=== PATIENT | male | born 1955 | race Caucasian/White ===

== ENCOUNTER 2021-07-09 01:11 | Inpatient (IN) | payer MEDICARE, OTHER ==
[~2021-07-09] VITALS: Ht 167.6 cm; Wt 68.7 kg
[2021-07-09] MEDS ORDERED: REMDESIVIR (EUA) 200 MG in NS 100ML 100 ML IV STA (01:46)
--- NOTE | 2021-07-09 01:56 | PRM.CONS ---
Consultation Reason for Consult: Reason for Consultation: ,Acute respiratory failure, COVID-19 pneumonia, CHF exacerbation History of Present Illness Current and Past HX: (1) Acute respiratory failure due to COVID-19 Status: Acute ICD Code: U07.1 - COVID-19; J96.00 - Acute respiratory failure, unspecified whether with hypoxia or hypercapnia SNOMED: 51608539, 759303247 Assessment & Plan: Diagnosed w/ COVID-19 infection approx 1 week ago. Body aches, productive cough. No fever, CP, KUMAR, dizziness, N/V. Went to [facility] for SOB and worsening cough. received albuterol, ativan, rocephin, s olumedrol, zinc, and lasix. Transferred here as no beds available locally. -continue steroids (decadron) daily -continue rocephin daily -add azithromycin daily -add remdesevir 200mg x 1 followed by 100mg daily starting tomorrow -supplemental O2 as needed, wean as tolerated (2) Pneumonia due to COVID-19 virus Status: Acute ICD Code: U07.1 - COVID-19; J12.82 - Pneumonia due to coronavirus disease 2019 SNOMED: 638258832480865666 Assessment & Plan: See assessment/plan above. (3) CHF exacerbation Status: Acute COMPLICATION TYPE: W/ ACUTE EXACERBATION ICD Code: I50.9 - Heart failure, unspecified SNOMED: 904071855, 79953288079469 Assessment & Plan: Mild pulmonary edema on CXR from outside hospital. Received lasix 40mg IV x 1 prior to transfer here. -lasix 40mg IV q12h -no IVFs -monitor I/Os and weight (4) No significant past surgical history SNOMED: 226981910 Social and Family History: (1) Family history non-contributory ICD Code: Z78.9 - Other specified health status SNOMED: 43096149 (2) Alcohol dependence, in remission ICD Code: F10.21 - Alcohol dependence, in remission SNOMED: 837013871 (3) Heavy smoker (more than 20 cigarettes per day) ICD Code: F17.210 - Nicotine dependence, cigarettes, uncomplicated SNOMED: 00847457 (4) Former smoker, stopped smoking in distant past ICD Code: Z87.891 - Personal history of nicotine dependence SNOMED: 5226145 (5) No illicit drug use SNOMED: 134682969 History of Patient Comments 65yoM w/ hx of CHF presents as a transfer from [place] [facility] for acute respiratory failure, COVID-19 pneumonia, and CHF exacerbation. Patient states he was diagnosed w/ COVID-19 approx 1 week ago. Is unvaccinated. Started feeling ill soon after diagnosis w/ body aches, malaise, chills, productive cough. Denied CP/KUMAR/dizziness/N/V. He started getting short of breath so went to his local ER ([place]) where his SpO2 was 80-85% on room air. He was immediately placed on oxygen. CXR consistent w/ viral pneumonia and likely fluid overload. He received steroids, albuterol treatment, rocephin, zinc, ativan, and lasix while in the ER. He was transferred to our facility as there were no local beds available. Vitals & Lab Vitals: HR 65, RR 24, SpO2 91% on 4L NC, temp 98.1, BP 119/78. Labs ordered for AM. Problem Qualifiers (1) CHF exacerbation: Heart failure type: unspecified Qualified Codes: I50.9 - Heart failure, unspecified EDU CHAN MD Jul 09, 2021 01:56
[2021-07-09] MEDS ORDERED: TYLENOL PO PRN (02:00)
[2021-07-09] MEDS ORDERED: NS 500ML 500 ML IV ONE (03:05)
[2021-07-09 04:53] VITALS: BP 123/72
[2021-07-09 05:13] LABS: BASOPHIL % 0.1 % (0.0-0.2); LYMPHOCYTES # 0.71 10^3/uL1 (1.0-4.8); LYMPHOCYTES % 8.8 % (24.0-44.0); MEAN CORP HGB 29.4 pg (26-34); MONOCYTES # 0.5 10^3/uL (0.3-0.8); MONOCYTES % 6.5 % (5.0-12.0); NEUTROPHIL # 6.8 10^3/uL (1.8-7.7); NEUTROPHILS % 84.2 % (41.0-85.0); PLATELET COUNT 210 10^3/uL (150-400); RED CELL DISTRIBUTION WIDTH 14.1 % (11.5-14.5)
[2021-07-09 05:35] LABS: CALCIUM 7.6 mg/dL (8.4-10.5); CARBON DIOXIDE 32.6 mmol/L (20.0-32)
[2021-07-09 07:44] VITALS: BP 140/90
[2021-07-09] MEDS ORDERED: ROCEPHIN ONE (07:55)
[2021-07-09] MEDS ORDERED: NS 100ML 100 ML IV ONE (07:55)
[2021-07-09] MEDS ORDERED: LASIX ONE (07:55)
[2021-07-09] MEDS: PROTONIX PO SCH (08:14)
[2021-07-09] MEDS: DEXAMETHASONE 10 MG/ML VIAL IV SCH (08:14)
[2021-07-09] MEDS: LASIX IV SCH ×2 (08:14→20:24)
[2021-07-09] MEDS: ROCEPHIN 1,000 MG in NS 100ML 100 ML IV SCH (08:14)
[2021-07-09] MEDS: ZITHROMAX 500 MG in NS 250ML 250 ML IV SCH (10:48)
[2021-07-09 11:19] VITALS: BP 133/78
--- NOTE | 2021-07-09 13:22 | DIREP ---
PROCEDURE:CHEST 1 VIEW COMPARISON:[facility], [facility], XRAY CHEST SINGLE VW, 07/08/2021, 11:35 AM. INDICATIONS:shortness of breath FINDINGS: LUNGS/PLEURA:Bilateral multi lobar infiltrates with mildly improved aeration bilaterally. VASCULATURE:Normal. Unremarkable pulmonary vasculature. CARDIAC:Normal. No cardiac silhouette abnormality or cardiomegaly. MEDIASTINUM:Normal. No visible mass or adenopathy. BONES:Normal. No fracture or visible bony lesion. OTHER:Right internal jugular vein central venous catheter CONCLUSION:Bilateral multi lobar infiltrates with mild improvement induration from prior exam. Dictated by: Michael Yates DO on 07/09/2021 at 01:20 PM
--- NOTE | 2021-07-09 13:56 | PCM.HP ---
Cardiology H&P DATE SEEN BY PHYSICIAN: Jul 09, 2021 TIME SEEN BY PROVIDER: 10:00 Gopal Complaint: (1) Pneumonia due to COVID-19 virus Status: Acute ICD Codes: U07.1 - COVID-19; J12.82 - Pneumonia due to coronavirus disease 2018 SNOMED: 806037760810802478 (2) Acute respiratory failure due to COVID-19 Status: Acute ICD Codes: U07.1 - COVID-19; J96.00 - Acute respiratory failure, unspecified whether with hypoxia or hypercapnia SNOMED: 99691310, 488216462 HPI pt was diagnosed 7 days ago with covid in [place],sent home with azithromycin, rocephin, nebulizer treatments and zinc . was told to follow up day 7, pt arrived to follow up and oxygen saturations were in the 80s, placed on O2 and transferred here to [place] due to no beds at [place]. Pt states he was not feeling any worse. Past Medical HX Smoker- current, heavy, daily Back pain/ back surgery Past Surgical Hx back surgery- lumbar spine- incision to left lower abdomen Social Hx Smoker- current- heavy ETOH- History of abuse- currently in remission recreational drugs- denies Constitutional: pt denies fevers, no significant weight changes, no significant appetite change HEENT: Denies any vision problems, eye pain, irritation, nose congestion or running, no hearing problems no sore throat Respiratory Systems: chronic cough, cough present worse this last week with covid, shortness of breath, inability to take deep breath, Cardiovascular Systems: denies palpitations, no leg swelling, no chest pain Gastrointestinal Systems: denies any abdominal pain, nausea, vomiting, diarrhea, constipation, no melena or hematochezia Genitourinary Systems: denies any dysuria, hesitancy, frequency, incontinence, hematuria Neurological: denies any headaches, syncope, confusion or dizziness Assessment & Plan General: pt appears comfortable, NAD, laying in bed, O2 on, no family at bedside due to diagnosis HEENT: MMM, EOMI, PERRLA, Neck supple,no lymphadenopathy, Central line to rt upper chest clean, dry intact and no redness. LUNGS: barrel shaped chest, Clear anteriorly, Posterior: crackles bilaterally in all lobes, ON 5 liters NC 90% O2 saturation HEART: S1S2, RRR, No rubs, gallops, murmurs, or thrills ABDOMEN: Soft , ND, NTTP, BS + x4 quadrants, no organomegaly Extremeties: No edema, moved all 4 extremities without difficulty, and completely off the bed Skin: no breakdown , no open lesions Neuro: AAOx3, no motor or sensory deficits , gait not assessed at this time. Laboratory Tests Test 07/09/21 04:20 White Blood Count 8.1 10^3/uL Red Blood Count 4.59 10^6/uL Hemoglobin 13.5 g/dL Hematocrit 41.7 % Mean Corpuscular Volume 90.8 fL Mean Corpuscular Hemoglobin 29.4 pg Mean Corpuscular Hemoglobin Concent 32.4 g/dL Red Cell Distribution Width 14.1 % Platelet Count 210 10^3/uL Mean Platelet Volume 9.7 fL Neutrophils (%) (Auto) 84.2 % Lymphocytes (%) (Auto) 8.8 % Monocytes (%) (Auto) 6.5 % Neutrophils # (Auto) 6.8 10^3/uL Lymphocytes # (Auto) 0.71 10^3/uL1 Monocytes # (Auto) 0.5 10^3/uL Absolute Immature Granulocyte (auto 0.03 10^3 u/L Absolute Eosinophils (auto) 0.0 10^3/uL Immature Granulocytes % 0.40 % Eosinophils % 0.0 % Basophils % 0.1 % Basophils # 0.0 10^3/uL Sodium Level 144 mmol/L Potassium Level 3.7 mmol/L Chloride Level 104.0 mmol/L Carbon Dioxide Level 32.6 mmol/L Anion Gap 11.1 Blood Urea Nitrogen 20 mg/dL Creatinine 1.10 mg/dL Estimated GFR () 81.3 Est GFR (CKD-EPI)(Non-Afr Vincentian) 67.2 BUN/Creatinine Ratio 18.0 Glucose Level 128 mg/dL Calcium Level 7.6 mg/dL Total Bilirubin 0.5 mg/dL Aspartate Amino Transf (AST/SGOT) 99 U/L Alanine Aminotransferase (ALT/SGPT) 169 U/L Alkaline Phosphatase 80 U/L Pro-B-Type Natriuretic Peptide 641 pg/mL Total Protein 5.9 g/dL Albumin 2.6 g/dL Globulin 3.3 Albumin/Globulin Ratio 0.787 Current Medications Medications (Trade) Dose Ordered Sig/Rocael Route PRN Reason Start Time Stop Time Status Last Admin Dose Admin Acetaminophen (Tylenol) 1,000 mg Q6H PRN PO PAIN 1 - 3 07/09/21 02:00 08/08/21 01:59 Pantoprazole Sodium (Protonix) 40 mg DAILY PO 07/09/21 09:00 08/08/21 08:59 07/09/21 08:14 Furosemide (Lasix) 40 mg BID IV 07/09/21 09:00 08/08/21 08:59 07/09/21 08:14 Azithromycin 500 mg/Sodium Chloride 250 ml @ 175 mls/hr Q24HRS IV 07/09/21 10:00 08/08/21 09:59 07/09/21 10:48 Ceftriaxone Sodium 1000 mg/ Sodium Chloride 100 ml @ 100 mls/hr Q24HRS IV 07/09/21 09:00 08/08/21 08:59 07/09/21 08:14 Remdesivir 200 mg/ Sodium Chloride 140 ml @ 120.69 mls/ hr OT STAT IV 07/09/21 01:46 07/09/21 08:10 DC 07/09/21 01:46 Remdesivir 100 mg/ Sodium Chloride 120 ml @ 111.111 mls/hr Q24HRS IV 07/10/21 02:00 08/09/21 01:59 Sodium Chloride 500 ml @ ud STK-MED ONCE IV 07/09/21 03:05 07/09/21 03:05 DC Furosemide (Lasix) 40 mg STK-MED ONCE .ROUTE 07/09/21 07:55 07/09/21 07:55 DC Sodium Chloride 100 ml @ ud STK-MED ONCE IV 07/09/21 07:55 07/09/21 07:55 DC Ceftriaxone Sodium (Rocephin) 1,000 mg STK-MED ONCE .ROUTE 07/09/21 07:55 07/09/21 07:55 DC PLAN : 1. Acute respiratory failure d/t Covid: will continue supportive care with Oxygen as needed and wean as tolerated 2. Pneumonia: Azithromycin IV, Rocephin IV, Decadron , zinc, lasix, remdisivir infusion x 5 days Daily chest x ray to evaluate improvement, 3. Elevated PBNP- ordered ECHO to see if pt does infact have heart failure, pt denies any history of this Est Time Spent with Patient: 30 min RADHA THAKKARP Jul 09, 2021 13:56
[2021-07-09 16:07] VITALS: BP 145/90
[2021-07-09 20:46] VITALS: BP 128/69
[2021-07-10 00:38] VITALS: BP 112/71
[2021-07-10] MEDS: REMDESIVIR (EUA) 100 MG in NS 100ML 100 ML IV SCH (01:49)
[2021-07-10 04:25] VITALS: BP 112/70
[2021-07-10] MEDS ORDERED: LANOLIN HYDROUS TP ONE (08:21)
[2021-07-10 08:42] VITALS: BP 126/65
[2021-07-10] MEDS: ROCEPHIN 1,000 MG in NS 100ML 100 ML IV SCH (08:42)
[2021-07-10] MEDS: PROTONIX PO SCH (08:42)
[2021-07-10] MEDS: LASIX IV SCH ×2 (08:42→21:28)
[2021-07-10] MEDS: DEXAMETHASONE 10 MG/ML VIAL IV SCH (08:42)
[2021-07-10 09:04] LABS: CARBON DIOXIDE 34.2 mmol/L (20.0-32)
[2021-07-10] MEDS: LOVENOX SQ SCH (11:30)
[2021-07-10] MEDS: ZITHROMAX 500 MG in NS 250ML 250 ML IV SCH (11:30)
[2021-07-10 12:30] VITALS: BP 104/64
[2021-07-10 16:28] VITALS: BP 101/66
[2021-07-10 20:59] VITALS: BP 134/78
[2021-07-10] MEDS: KLOR-CON 10 PO SCH (21:28)
[2021-07-11 00:45] VITALS: BP 134/78
[2021-07-11] MEDS: REMDESIVIR (EUA) 100 MG in NS 100ML 100 ML IV SCH (02:00)
[2021-07-11 05:02] VITALS: BP 109/67
[2021-07-11 07:03] LABS: BASOPHIL % 0.1 % (0.0-0.2); EOSINOPHIL % 0.1 % (0.0-5.0); MEAN CORP HGB 29.3 pg (26-34); MONOCYTES # 0.5 10^3/uL (0.3-0.8); MONOCYTES % 5.8 % (5.0-12.0); NEUTROPHIL # 6.3 10^3/uL (1.8-7.7); NEUTROPHILS % 77.1 % (41.0-85.0); PLATELET COUNT 244 10^3/uL (150-400); RED CELL DISTRIBUTION WIDTH 13.8 % (11.5-14.5)
[2021-07-11 07:18] VITALS: BP 107/71
[2021-07-11 07:27] LABS: CALCIUM 8.1 mg/dL (8.4-10.5); CARBON DIOXIDE 34.3 mmol/L (20.0-32)
[2021-07-11] MEDS ORDERED: NS 500ML 500 ML IV ONE (08:25)
[2021-07-11] MEDS: ROCEPHIN 1,000 MG in NS 100ML 100 ML IV SCH (08:45)
[2021-07-11] MEDS: KLOR-CON 10 PO SCH (08:45)
[2021-07-11] MEDS: PROTONIX PO SCH (08:45)
[2021-07-11] MEDS: DEXAMETHASONE 10 MG/ML VIAL IV SCH (08:45)
[2021-07-11] MEDS: LASIX IV SCH ×2 (08:45→20:59)
[2021-07-11] MEDS: LOVENOX SQ SCH (08:46)
[2021-07-11] MEDS: ZITHROMAX 500 MG in NS 250ML 250 ML IV SCH (10:52)
--- NOTE | 2021-07-11 10:54 | PRM.PN ---
Progress Note Subjective Date: Jul 10, 2021 Time: 08:00 Physician Notes: pt appears short of breath, o2 saturation 92 % on 6 lit/ nc, pt denies shortness of breath Objective Review IO, Exams,& Results Problems Acute/Active Problems: (1) Acute respiratory failure due to COVID-19 (2) CHF exacerbation (3) Pneumonia due to COVID-19 virus Vital Signs Date Time Temp Pulse Resp B/P (MAP) Pulse Ox O2 Delivery O2 Flow Rate FiO2 07/11/21 09:00 82 18 92 Nasal Cannula 6.00 07/11/21 08:45 107/71 07/11/21 07:18 97.9 07/09/21 21:06 44 Intake and Output 07/11/21 07:00 Intake Total 118 ml Output Total 1650 ml Balance -1532 ml Intake Oral 118 ml Output Urine Total 1650 ml # Bowel Movements 1 Laboratory Tests Test 07/10/21 08:34 07/10/21 08:54 07/11/21 06:00 White Blood Count 7.4 10^3/uL 8.2 10^3/uL Red Blood Count 4.97 10^6/uL 4.84 10^6/uL Hemoglobin 14.4 g/dL 14.2 g/dL Hematocrit 45.6 % 44.5 % Mean Corpuscular Volume 91.8 fL 91.9 fL Mean Corpuscular Hemoglobin 29.0 pg 29.3 pg Mean Corpuscular Hemoglobin Concent 31.6 g/dL 31.9 g/dL Red Cell Distribution Width 14.0 % 13.8 % Platelet Count 237 10^3/uL 244 10^3/uL Mean Platelet Volume 8.9 fL 9.1 fL Sodium Level 144 mmol/L 142 mmol/L Potassium Level 3.2 mmol/L 3.2 mmol/L Chloride Level 104.0 mmol/L 104.0 mmol/L Carbon Dioxide Level 34.2 mmol/L 34.3 mmol/L Anion Gap 9.0 6.9 Blood Urea Nitrogen 27 mg/dL 27 mg/dL Creatinine 0.98 mg/dL 1.11 mg/dL Estimated GFR () 92.9 80.4 Est GFR (CKD-EPI)(Non-Afr Angolan) 76.8 66.5 BUN/Creatinine Ratio 27.0 24.0 Glucose Level 94 mg/dL 108 mg/dL Calcium Level 8.0 mg/dL 8.1 mg/dL Total Bilirubin 0.5 mg/dL 0.5 mg/dL Aspartate Amino Transf (AST/SGOT) 167 U/L 94 U/L Alanine Aminotransferase (ALT/SGPT) 330 U/L 285 U/L Alkaline Phosphatase 85 U/L 81 U/L Total Protein 6.1 g/dL 5.9 g/dL Albumin 2.5 g/dL 2.5 g/dL Globulin 3.6 3.4 Albumin/Globulin Ratio 0.694 0.735 Prothrombin Time 10.3 SEC Prothrombin Time INR (Non-Therap) 1.0 D-Dimer 1.35 mg/L Neutrophils (%) (Auto) 77.1 % Lymphocytes (%) (Auto) 16.0 % Monocytes (%) (Auto) 5.8 % Neutrophils # (Auto) 6.3 10^3/uL Lymphocytes # (Auto) 1.30 10^3/uL1 Monocytes # (Auto) 0.5 10^3/uL Absolute Immature Granulocyte (auto 0.07 10^3 u/L Absolute Eosinophils (auto) 0.0 10^3/uL Immature Granulocytes % 0.90 % Eosinophils % 0.1 % Basophils % 0.1 % Basophils # 0.0 10^3/uL Pro-B-Type Natriuretic Peptide 157 pg/mL Current Medications Medications (Trade) Dose Ordered Sig/Rocael PRN Reason Start Time Stop Time Status Last Admin Acetaminophen (Tylenol) 1,000 mg Q6H PRN PAIN 1 - 3 07/09/21 02:00 08/08/21 01:59 07/09/21 20:25 Azithromycin 500 mg/Sodium Chloride 250 ml @ 175 mls/hr Q24HRS 07/09/21 10:00 08/08/21 09:59 07/10/21 11:30 Ceftriaxone Sodium 1000 mg/ Sodium Chloride 100 ml @ 100 mls/hr Q24HRS 07/09/21 09:00 08/08/21 08:59 07/11/21 08:45 Enoxaparin Sodium (Lovenox) 40 mg Q24HRS 07/10/21 09:00 08/09/21 08:59 07/11/21 08:46 Furosemide (Lasix) 40 mg BID 07/09/21 09:00 08/08/21 08:59 07/11/21 08:45 Pantoprazole Sodium (Protonix) 40 mg DAILY 07/09/21 09:00 08/08/21 08:59 07/11/21 08:45 Potassium Chloride (Klor-Con 10) 20 meq DAILY 07/10/21 21:00 08/09/21 20:59 07/11/21 08:45 Remdesivir 100 mg/ Sodium Chloride 120 ml @ 111.111 mls/hr Q24HRS 07/10/21 02:00 08/09/21 01:59 07/11/21 02:00 Orders - RADHA THAKKAR TECHNICAL EDITOR Xr Chest 1v (07/09/21 11:21) Enoxaparin Sodium (Lovenox) (07/10/21 09:00) Potassium Chloride (Klor-Con 10) (07/10/21 21:00) Cbc With Auto Diff (07/12/21 05:00) Cbc With Auto Diff (07/13/21 05:00) Cbc With Auto Diff (07/14/21 05:00) Comprehensive Metabolic Panel (07/12/21 05:00) Comprehensive Metabolic Panel (07/13/21 05:00) Comprehensive Metabolic Panel (07/14/21 05:00) High Protein Diet (07/10/21 Dinner) Heart: Regular rate, Normal S1, Normal S2, No murmurs, Gallops, Rubs Abdomen: Normal bowel sounds, Soft, No tenderness, No hepatospenomegaly, No masses Lungs: Other (left lower lobe crackles present ) Skin: No rashes, No breakdown, No significant lesion Complications/Observations shortness of breath, desaturation upon exertion Assessment & Plan: Problems/Diagnosis: (1) Pneumonia due to COVID-19 virus Was this Present on Admission?: YES ICD Code: U07.1 - COVID-19; J12.82 - Pneumonia due to coronavirus disease 2019 SNOMED: 125497555687405222 Status: Acute (2) Acute respiratory failure due to COVID-19 Was this Present on Admission?: YES ICD Code: U07.1 - COVID-19; J96.00 - Acute respiratory failure, unspecified whether with hypoxia or hypercapnia SNOMED: 99465636, 486557408 Status: Acute (3) CHF exacerbation Was this Present on Admission?: YES ICD Code: I50.9 - Heart failure, unspecified SNOMED: 485293674, 72461231949936 Status: Resolved Assessment & Plan: pt BNP is <200, pt denies any hisotry of CHF and is not short of breath today, no swelling of extremeties and crackles to LLL only Plan General: appears short of breath despite O2 @6lit./ nc, no family at bedside, lying in bed HEENT: PERRLA, EOMI, MMM, neck is supple, no thyromegaly, no JVD LUNGS: LLL with crackles, all other lobes CTA HEART: S1S2. RRR, no murmurs, rubs, gallops or thrills, ABDOMEN: soft, ND, NTTP, no rebound, no guarding, normal BSx4, . EXTREMITIES: no swelling , warm pulses +2 SKIN: no rash, no breakdown NEURO: AAOX3, no motor or sensory deficits noted, gait not assessed at this time. PLAN: 1. covid pneumonia: decadron, azithromycin , zinc, rest and oxygen support 2) acute resp failure with hypoxia: O2 support and wean as needed 3) DVT prophylaxis: lovenox sq and scds Problem Qualifiers (1) CHF exacerbation: Heart failure type: unspecified Qualified Codes: I50.9 - Heart failure, unspecified RADHA THAKKARP Jul 11, 2021 10:54
--- NOTE | 2021-07-11 10:58 | PRM.PN ---
Progress Note Subjective Date: Jul 11, 2021 Time: 08:00 Physician Notes: Appears much more rested and no short of breath this morning, laying in bed resting. Objective Review IO, Exams,& Results Problems Acute/Active Problems: (1) Acute respiratory failure due to COVID-19 (2) Pneumonia due to COVID-19 virus Resolved Problems: (1) CHF exacerbation Vital Signs Date Time Temp Pulse Resp B/P (MAP) Pulse Ox O2 Delivery O2 Flow Rate FiO2 07/11/21 09:00 82 18 92 Nasal Cannula 6.00 07/11/21 08:45 107/71 07/11/21 07:18 97.9 07/09/21 21:06 44 Intake and Output 07/11/21 07:00 Intake Total 118 ml Output Total 1650 ml Balance -1532 ml Intake Oral 118 ml Output Urine Total 1650 ml # Bowel Movements 1 Laboratory Tests Test 07/10/21 08:34 07/10/21 08:54 07/11/21 06:00 White Blood Count 7.4 10^3/uL 8.2 10^3/uL Red Blood Count 4.97 10^6/uL 4.84 10^6/uL Hemoglobin 14.4 g/dL 14.2 g/dL Hematocrit 45.6 % 44.5 % Mean Corpuscular Volume 91.8 fL 91.9 fL Mean Corpuscular Hemoglobin 29.0 pg 29.3 pg Mean Corpuscular Hemoglobin Concent 31.6 g/dL 31.9 g/dL Red Cell Distribution Width 14.0 % 13.8 % Platelet Count 237 10^3/uL 244 10^3/uL Mean Platelet Volume 8.9 fL 9.1 fL Sodium Level 144 mmol/L 142 mmol/L Potassium Level 3.2 mmol/L 3.2 mmol/L Chloride Level 104.0 mmol/L 104.0 mmol/L Carbon Dioxide Level 34.2 mmol/L 34.3 mmol/L Anion Gap 9.0 6.9 Blood Urea Nitrogen 27 mg/dL 27 mg/dL Creatinine 0.98 mg/dL 1.11 mg/dL Estimated GFR () 92.9 80.4 Est GFR (CKD-EPI)(Non-Afr Maldivian) 76.8 66.5 BUN/Creatinine Ratio 27.0 24.0 Glucose Level 94 mg/dL 108 mg/dL Calcium Level 8.0 mg/dL 8.1 mg/dL Total Bilirubin 0.5 mg/dL 0.5 mg/dL Aspartate Amino Transf (AST/SGOT) 167 U/L 94 U/L Alanine Aminotransferase (ALT/SGPT) 330 U/L 285 U/L Alkaline Phosphatase 85 U/L 81 U/L Total Protein 6.1 g/dL 5.9 g/dL Albumin 2.5 g/dL 2.5 g/dL Globulin 3.6 3.4 Albumin/Globulin Ratio 0.694 0.735 Prothrombin Time 10.3 SEC Prothrombin Time INR (Non-Therap) 1.0 D-Dimer 1.35 mg/L Neutrophils (%) (Auto) 77.1 % Lymphocytes (%) (Auto) 16.0 % Monocytes (%) (Auto) 5.8 % Neutrophils # (Auto) 6.3 10^3/uL Lymphocytes # (Auto) 1.30 10^3/uL1 Monocytes # (Auto) 0.5 10^3/uL Absolute Immature Granulocyte (auto 0.07 10^3 u/L Absolute Eosinophils (auto) 0.0 10^3/uL Immature Granulocytes % 0.90 % Eosinophils % 0.1 % Basophils % 0.1 % Basophils # 0.0 10^3/uL Pro-B-Type Natriuretic Peptide 157 pg/mL Current Medications Medications (Trade) Dose Ordered Sig/Rocael PRN Reason Start Time Stop Time Status Last Admin Acetaminophen (Tylenol) 1,000 mg Q6H PRN PAIN 1 - 3 07/09/21 02:00 08/08/21 01:59 07/09/21 20:25 Azithromycin 500 mg/Sodium Chloride 250 ml @ 175 mls/hr Q24HRS 07/09/21 10:00 08/08/21 09:59 07/10/21 11:30 Ceftriaxone Sodium 1000 mg/ Sodium Chloride 100 ml @ 100 mls/hr Q24HRS 07/09/21 09:00 08/08/21 08:59 07/11/21 08:45 Enoxaparin Sodium (Lovenox) 40 mg Q24HRS 07/10/21 09:00 08/09/21 08:59 07/11/21 08:46 Furosemide (Lasix) 40 mg BID 07/09/21 09:00 08/08/21 08:59 07/11/21 08:45 Pantoprazole Sodium (Protonix) 40 mg DAILY 07/09/21 09:00 08/08/21 08:59 07/11/21 08:45 Potassium Chloride (Klor-Con 10) 20 meq DAILY 07/10/21 21:00 08/09/21 20:59 07/11/21 08:45 Remdesivir 100 mg/ Sodium Chloride 120 ml @ 111.111 mls/hr Q24HRS 07/10/21 02:00 08/09/21 01:59 07/11/21 02:00 Orders - RADHA THAKKAR GEOLOGY SCIENTIST Xr Chest 1v (07/09/21 11:21) Enoxaparin Sodium (Lovenox) (07/10/21 09:00) Potassium Chloride (Klor-Con 10) (07/10/21 21:00) Cbc With Auto Diff (07/12/21 05:00) Cbc With Auto Diff (07/13/21 05:00) Cbc With Auto Diff (07/14/21 05:00) Comprehensive Metabolic Panel (07/12/21 05:00) Comprehensive Metabolic Panel (07/13/21 05:00) Comprehensive Metabolic Panel (07/14/21 05:00) High Protein Diet (07/10/21 Dinner) Heart: Regular rate, Normal S1, Normal S2, No murmurs, Gallops, Rubs Abdomen: Normal bowel sounds, Soft, No tenderness, No hepatospenomegaly, No masses Lungs: Other (left lower lobe crackles present ) Skin: No rashes, No breakdown, No significant lesion Changes in Treatment Decadron 6 mg IV daily Assessment & Plan: Problems/Diagnosis: (1) Acute respiratory failure due to COVID-19 Was this Present on Admission?: YES ICD Code: U07.1 - COVID-19; J96.00 - Acute respiratory failure, unspecified whether with hypoxia or hypercapnia SNOMED: 52069679, 594582910 Status: Acute (2) Pneumonia due to COVID-19 virus Was this Present on Admission?: YES ICD Code: U07.1 - COVID-19; J12.82 - Pneumonia due to coronavirus disease 2019 SNOMED: 591055186546888264 Status: Acute Assessment General: appears comfortable, no family at bedside, lying in bed HEENT: PERRLA, EOMI, MMM, neck is supple, no thyromegaly, no JVD LUNGS: LLL with crackles, all other lobes CTA HEART: S1S2. RRR, no murmurs, rubs, gallops or thrills, ABDOMEN: soft, ND, NTTP, no rebound, no guarding, normal BSx4, . EXTREMITIES: no swelling , warm pulses +2 SKIN: no rash, no breakdown NEURO: AAOX3, no motor or sensory deficits noted, gait not assessed at this time. PLAN: 1. covid pneumonia: decadron, azithromycin , zinc, rest and oxygen support 2) acute resp failure with hypoxia: O2 support and wean as needed 3) DVT prophylaxis: lovenox sq and scds RADHA THAKKAR GEOLOGY SCIENTIST Jul 11, 2021 10:58
[2021-07-11 11:52] VITALS: BP 120/62
[2021-07-11] MEDS ORDERED: DIPRIVAN IV STA (13:36)
[2021-07-11] MEDS ORDERED: DIPRIVAN IV PRN (14:00)
[2021-07-11 16:15] VITALS: BP 116/65
[2021-07-11 20:00] VITALS: BP 101/66
[2021-07-11] MEDS: MELATONIN PO PRN (20:59)
[2021-07-12] VITALS (7 sets, daily range): BP systolic 93–135; BP diastolic 43–73
[2021-07-12] MEDS ORDERED: COMBIVENT RESPIMAT 20-100 MCG IH ONE (01:12)
--- NOTE | 2021-07-12 01:33 | NUR ---
Pt's 02 sats 85% on 6 liters NC. Encouraged pt to use IS and notified RT. RT put pt on venti mask. 02 sats 92% and administered Combivient inhaler. Pt denies shortness of breath at this time.
--- NOTE | 2021-07-12 01:47 | NUR ---
At approximately 0040, the patient oxygen delivery device was changed to venturi mask at 45%/ 12 lpm. The nursing staff reported a downward trend in the SpO2 throughout the evening. On assessment, the patient exhibited no marked dyspnea at rest, however, minimal activity increased the work of breathing and subsequent increase in HR and decrease in SpO2. Pt appears to tolerate the mask well and the immediate improvement with a decrease in HR and increase in SpO2 was noted. Additionally, a Combivent MDI was added RTQ6hr. The first dose being administered at 0055. christin Addendum: 07/12/21 at 0152 by AGNIESZKA CORNELL RT Amended: Links added.
[2021-07-12] MEDS: COMBIVENT RESPIMAT 20-100 MCG IH SCH ×3 (01:52→16:25)
[2021-07-12] MEDS: REMDESIVIR (EUA) 100 MG in NS 100ML 100 ML IV SCH (02:10)
[2021-07-12 06:59] LABS: BASOPHIL % 0.1 % (0.0-0.2); EOSINOPHIL # 0.1 10^3/uL (0.0-0.2); EOSINOPHIL % 0.5 % (0.0-5.0); LYMPHOCYTES # 1.41 10^3/uL1 (1.0-4.8); LYMPHOCYTES % 14.1 % (24.0-44.0); MEAN CORP HGB 29.9 pg (26-34); MONOCYTES # 0.5 10^3/uL (0.3-0.8); MONOCYTES % 4.7 % (5.0-12.0); NEUTROPHIL # 8.1 10^3/uL (1.8-7.7); NEUTROPHILS % 80.6 % (41.0-85.0); PLATELET COUNT 276 10^3/uL (150-400); RED CELL DISTRIBUTION WIDTH 13.4 % (11.5-14.5)
[2021-07-12 07:21] LABS: CALCIUM 8.2 mg/dL (8.4-10.5); CARBON DIOXIDE 32.5 mmol/L (20.0-32)
[2021-07-12] MEDS: DEXAMETHASONE 10 MG/ML VIAL IV SCH (08:18)
[2021-07-12] MEDS: LASIX IV SCH ×2 (08:18→20:16)
[2021-07-12] MEDS: LOVENOX SQ SCH (08:19)
[2021-07-12] MEDS: PROTONIX PO SCH (08:19)
[2021-07-12] MEDS: KLOR-CON 10 PO SCH ×2 (08:19→20:17)
[2021-07-12] MEDS: ROCEPHIN 1,000 MG in NS 100ML 100 ML IV SCH (08:20)
--- NOTE | 2021-07-12 08:42 | NUR ---
Assumed patient care at this time, pt visibly irritated and states he does not want to be in hospital. Patient encouraged to stay in hospital because of how sick he is. pt in bed on 50%VM, sats around 87-89%. Patient gotten up to chair and switched to 6L NC to eat breakfast, sats maintained around 88%. Patient encouraged to continue working on incentive spirometer and to move around as much as possible. Patient informed of the possibility of going on high flow nasal cannula if sats begin to drop. Patient voices understanding and has no questions or concerns. Will continue to monitor. Addendum: 07/12/21 at 0850 by Jaylene Jonas RRT RT Amended: Links added.
[2021-07-12] MEDS: NITROSTAT SL STA ×2 (10:11→10:16)
[2021-07-12] MEDS: ZITHROMAX 500 MG in NS 250ML 250 ML IV SCH (10:11)
--- NOTE | 2021-07-12 10:16 | NUR ---
CHEST PAIN PT MADE COMPLAINT OF CHEST PAIN TO [facility]ALEIGH THAKKAR. PROVIDER ORDERED STAT ORDER OF NITROGLYCERIN SL TAB 0.4 MG. PT NOW VERBALIZES NO PAIN AND IS EDUCATED ON NITROGLYCERIN ASSOCIATED HEAD ACHES. PT REFUSED MED. MED NOT NEEDED AT THIS TIME.
--- NOTE | 2021-07-12 11:26 | PCM.EKG ---
[facility] Test Date: 2021-07-12 Test Time: 11:24:16 Pat Name: XU SEGOVIA Department: Room: 303 A Gender: M Aircraft Assembler: MADDIE : 1955 Requested By: RADHA THAKKAR Order Number: [id number] Reading MD: Measurements Intervals [place] Rate: 85 P: 39 MN: 146 QRS: -25 QRSD: 90 T: 30 QT: 362 QTc: 431 Interpretive Statements Sinus rhythm Probable left atrial enlargement Borderline left axis deviation Baseline wander in lead(s) V5 No previous ECG available for comparison Please click the below link to view image of tracing.
--- NOTE | 2021-07-12 13:07 | PRM.PN ---
Progress Note Subjective Date: Jul 12, 2021 Time: 08:00 Physician Notes: Patient appears very uncomfortable, shortness of breath, complains of chest pain in center of chest that is reproducible with palpation and deep breath, O2 is at 6 L nasal cannula, saturations 92%. Discussed with patient incentive spirometry importance of ambulation and deep breathing, ordered EKG, cardiac enzymes, nitro, Objective Review IO, Exams,& Results Problems Acute/Active Problems: (1) Acute respiratory failure due to COVID-19 (2) Pneumonia due to COVID-19 virus Resolved Problems: (1) CHF exacerbation Vital Signs Date Time Temp Pulse Resp B/P (MAP) Pulse Ox O2 Delivery O2 Flow Rate FiO2 07/12/21 12:05 97.9 84 20 95/43 (60) 94 07/12/21 11:30 Comfort Jomar 30.00 50 Intake and Output 07/12/21 07:00 Intake Total 220 ml Output Total 1000 ml Balance -780 ml Intake Oral 220 ml Output Urine Total 1000 ml Laboratory Tests Test 07/11/21 06:00 07/12/21 05:50 White Blood Count 8.2 10^3/uL 10.0 10^3/uL Red Blood Count 4.84 10^6/uL 4.78 10^6/uL Hemoglobin 14.2 g/dL 14.3 g/dL Hematocrit 44.5 % 43.4 % Mean Corpuscular Volume 91.9 fL 90.8 fL Mean Corpuscular Hemoglobin 29.3 pg 29.9 pg Mean Corpuscular Hemoglobin Concent 31.9 g/dL 32.9 g/dL Red Cell Distribution Width 13.8 % 13.4 % Platelet Count 244 10^3/uL 276 10^3/uL Mean Platelet Volume 9.1 fL 9.1 fL Neutrophils (%) (Auto) 77.1 % 80.6 % Lymphocytes (%) (Auto) 16.0 % 14.1 % Monocytes (%) (Auto) 5.8 % 4.7 % Neutrophils # (Auto) 6.3 10^3/uL 8.1 10^3/uL Lymphocytes # (Auto) 1.30 10^3/uL1 1.41 10^3/uL1 Monocytes # (Auto) 0.5 10^3/uL 0.5 10^3/uL Absolute Immature Granulocyte (auto 0.07 10^3 u/L 0.10 10^3 u/L Absolute Eosinophils (auto) 0.0 10^3/uL 0.1 10^3/uL Immature Granulocytes % 0.90 % 1.00 % Eosinophils % 0.1 % 0.5 % Basophils % 0.1 % 0.1 % Basophils # 0.0 10^3/uL 0.0 10^3/uL Sodium Level 142 mmol/L 143 mmol/L Potassium Level 3.2 mmol/L 3.0 mmol/L Chloride Level 104.0 mmol/L 104.0 mmol/L Carbon Dioxide Level 34.3 mmol/L 32.5 mmol/L Anion Gap 6.9 9.5 Blood Urea Nitrogen 27 mg/dL 27 mg/dL Creatinine 1.11 mg/dL 1.03 mg/dL Estimated GFR () 80.4 87.7 Est GFR (CKD-EPI)(Non-Afr Greenlandic) 66.5 72.5 BUN/Creatinine Ratio 24.0 26.0 Glucose Level 108 mg/dL 96 mg/dL Calcium Level 8.1 mg/dL 8.2 mg/dL Total Bilirubin 0.5 mg/dL 0.5 mg/dL Aspartate Amino Transf (AST/SGOT) 94 U/L 56 U/L Alanine Aminotransferase (ALT/SGPT) 285 U/L 224 U/L Alkaline Phosphatase 81 U/L 82 U/L Pro-B-Type Natriuretic Peptide 157 pg/mL 115 pg/mL Total Protein 5.9 g/dL 5.9 g/dL Albumin 2.5 g/dL 2.5 g/dL Globulin 3.4 3.4 Albumin/Globulin Ratio 0.735 0.735 Triglycerides Level 77 mg/dL Total Creatine Kinase 74 U/L Creatine Kinase MB < 0.5 ng/mL Troponin I < 0.02 ng/mL Current Medications Medications (Trade) Dose Ordered Sig/Rocael PRN Reason Start Time Stop Time Status Last Admin Albuterol/ Ipratropium (Combivent Respimat 20-100 Mcg) 1 inh RTQ6H 07/12/21 01:30 08/11/21 01:29 07/12/21 08:25 Enoxaparin Sodium (Lovenox) 40 mg Q24HRS 07/10/21 09:00 08/09/21 08:59 07/12/21 08:19 Melatonin (Melatonin) 3 mg HS PRN INSOMNIA 07/11/21 16:30 08/10/21 16:29 07/11/21 20:59 Potassium Chloride (Klor-Con 10) 20 meq BID 07/12/21 09:00 08/11/21 08:59 07/12/21 08:19 Remdesivir 100 mg/ Sodium Chloride 120 ml @ 111.111 mls/hr Q24HRS 07/10/21 02:00 08/09/21 01:59 07/12/21 02:10 Tracy - RADHA [employer] Cbc With Auto Diff (07/13/21 05:00) Cbc With Auto Diff (07/14/21 05:00) Comprehensive Metabolic Panel (07/13/21 05:00) Comprehensive Metabolic Panel (07/14/21 05:00) High Protein Diet (07/10/21 Dinner) Potassium Chloride (Klor-Con 10) (07/12/21 09:00) Xr Chest 1v (07/12/21 09:50) Heart: Regular rate, Normal S1, Normal S2, No murmurs, Gallops, Rubs Abdomen: Normal bowel sounds, Soft, No tenderness, No hepatospenomegaly, No masses Lungs: Other (left lower lobe crackles present , 6 liters NC ) Skin: No rashes, No breakdown, No significant lesion Complications/Observations While in room, patient continued with shortness of breath, respiratory therapy moved patient to comfort flow 30 L. Patient now states he has no chest pain and did not want the nitro. Changes in Treatment Comfort flow at 30 L Assessment & Plan: Problems/Diagnosis: (1) Acute respiratory failure due to COVID-19 Was this Present on Admission?: YES ICD Code: U07.1 - COVID-19; J96.00 - Acute respiratory failure, unspecified whether with hypoxia or hypercapnia SNOMED: 48009483, [id number] Status: Acute (2) Pneumonia due to COVID-19 virus Was this Present on Admission?: YES ICD Code: U07.1 - COVID-19; J12.82 - Pneumonia due to coronavirus disease 2019 SNOMED: 025748548805121273 Status: Acute (3) Chest pain at rest Was this Present on Admission?: NO Onset Date: ~ 07/12/2021 ICD Code: R07.9 - Chest pain, unspecified SNOMED: 1855220 Status: Acute Assessment General: appears uncomfortable, short of breath, unable to deep breathe. sitting up in chair, states he is freezing cold HEENT: PERRLA, EOMI, MMM, neck is supple, no thyromegaly, no JVD LUNGS: LLL with crackles, all other lobes CTA HEART: S1S2. RRR, no murmurs, rubs, gallops or thrills, ABDOMEN: soft, ND, NTTP, no rebound, no guarding, normal BSx4, . EXTREMITIES: no swelling , warm pulses +2 SKIN: no rash, no breakdown NEURO: AAOX3, no motor or sensory deficits noted, gait not assessed at this time. PLAN: 1. covid pneumonia: decadron, azithromycin , zinc, rest and oxygen support 2) acute resp failure with hypoxia: O2 support increased to Comfort Flow 30L 3) DVT prophylaxis: lovenox sq and scds 4) chest pain: cardiac enzymes, EKG, RADHA GamezP Jul 12, 2021 13:07
--- NOTE | 2021-07-12 15:52 | DIREP ---
PROCEDURE:CHEST 1 VIEW COMPARISON:[facility], CR, XRAY CHEST SINGLE VW, 07/09/2021, 11:21 AM. [facility], CR, XRAY CHEST SINGLE VW, 07/08/2021, 11:35 AM. INDICATIONS:chest pain FINDINGS: LUNGS/PLEURA:Low lung volumes with associated interstitial crowding. Patchy interstitial opacities, slightly improving in distribution since the prior examinations. Costophrenic angles are sharp. No pneumothorax. VASCULATURE:Normal. Unremarkable pulmonary vasculature. CARDIAC:Normal. No cardiac silhouette abnormality or cardiomegaly. MEDIASTINUM:Midline in position. BONES:Significant degenerative change of the right shoulder. OTHER:Right IJ approach central venous catheter tip at the level of the lower right atrium. CONCLUSION: Low lung volumes with associated interstitial crowding. Slightly improving interstitial pattern of opacity in the lungs. Dictated by: Slick Oconnell MD on 07/12/2021 at 03:45 PM
--- NOTE | 2021-07-13 00:12 | NUR ---
PT REFUSES TO WEAR TELEMETRY
[2021-07-13 01:07] VITALS: BP 124/68
[2021-07-13] MEDS: REMDESIVIR (EUA) 100 MG in NS 100ML 100 ML IV SCH (01:25)
[2021-07-13 04:13] VITALS: BP 120/73
[2021-07-13 05:44] LABS: EOSINOPHIL # 0.2 10^3/uL (0.0-0.2); EOSINOPHIL % 1.6 % (0.0-5.0); LYMPHOCYTES # 1.24 10^3/uL1 (1.0-4.8); LYMPHOCYTES % 10.7 % (24.0-44.0); MEAN CORP HGB 29.9 pg (26-34); MONOCYTES # 0.5 10^3/uL (0.3-0.8); NEUTROPHIL # 9.7 10^3/uL (1.8-7.7); NEUTROPHILS % 83.7 % (41.0-85.0); PLATELET COUNT 303 10^3/uL (150-400); RED CELL DISTRIBUTION WIDTH 13.6 % (11.5-14.5)
[2021-07-13 05:59] LABS: CALCIUM 8.4 mg/dL (8.4-10.5); CARBON DIOXIDE 33.3 mmol/L (20.0-32)
[2021-07-13 08:10] VITALS: BP 101/64
[2021-07-13] MEDS ORDERED: NS 250ML 250 ML ONE (08:41)
[2021-07-13] MEDS: DEXAMETHASONE 10 MG/ML VIAL IV SCH (09:03)
[2021-07-13] MEDS: LASIX IV SCH ×2 (09:03→20:05)
[2021-07-13] MEDS: KLOR-CON 10 PO SCH ×2 (09:04→20:06)
[2021-07-13] MEDS: ROCEPHIN 1,000 MG in NS 100ML 100 ML IV SCH (09:04)
[2021-07-13] MEDS: LOVENOX SQ SCH (09:04)
[2021-07-13] MEDS: PROTONIX PO SCH (09:04)
[2021-07-13] MEDS: ZITHROMAX 500 MG in NS 250ML 250 ML IV SCH (10:54)
[2021-07-13 11:53] VITALS: BP 101/69
[2021-07-13] MEDS: COMBIVENT RESPIMAT 20-100 MCG IH SCH ×2 (15:12→21:00)
[2021-07-13 17:04] VITALS: BP 106/49
[2021-07-13 19:59] VITALS: BP 117/82
--- NOTE | 2021-07-13 20:19 | PRM.PN ---
PROGRESS NOTE SUBJECTIVE Breathing easier than yesterday, chest pain resolved, Tolerating p.o. intake well No bowel movement today OBJECTIVE Vital Signs Date Time Temp Pulse Resp B/P (MAP) Pulse Ox O2 Delivery O2 Flow Rate FiO2 07/13/21 20:05 117/82 07/13/21 19:59 98.9 74 16 117/82 (94) 94 07/13/21 17:04 98.6 71 19 106/49 (68) 94 07/13/21 16:58 63 20 94 Comfort Jomar 07/13/21 15:13 63 20 94 07/13/21 11:53 98.5 63 20 101/69 (80) 94 07/13/21 10:55 Comfort Jomar 35.00 07/13/21 10:54 81 18 98 Comfort Jomar 30.00 50 07/13/21 09:03 101/64 07/13/21 08:10 98.7 81 18 101/64 (76) 95 Comfort Flow General: Patient is awake alert oriented not in distress HEENT:Nasal prong oxygen,Via high flow , Mucous membrane is moist, Neck supple Lungs left basal Rales present Heart regular rate and rhythm no murmur gallop appreciated Abdomen: Soft nontender bowel sounds present Extremities no edema no calf tenderness 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 Laboratory Tests Test 07/11/21 06:00 07/12/21 05:50 07/13/21 05:23 White Blood Count 8.2 10^3/uL (4.5-11.0) 10.0 10^3/uL (4.5-11.0) 11.6 10^3/uL (4.5-11.0) Red Blood Count 4.84 10^6/uL (4.50-5.90) 4.78 10^6/uL (4.50-5.90) 4.85 10^6/uL (4.50-5.90) Hemoglobin 14.2 g/dL (13.9-16.3) 14.3 g/dL (13.9-16.3) 14.5 g/dL (13.9-16.3) Hematocrit 44.5 % (37.0-53.0) 43.4 % (37.0-53.0) 44.5 % (37.0-53.0) Mean Corpuscular Volume 91.9 fL (78-100) 90.8 fL (78-100) 91.8 fL (78-100) Mean Corpuscular Hemoglobin 29.3 pg (26-34) 29.9 pg (26-34) 29.9 pg (26-34) Mean Corpuscular Hemoglobin Concent 31.9 g/dL (33-36.5) 32.9 g/dL (33-36.5) 32.6 g/dL (33-36.5) Red Cell Distribution Width 13.8 % (11.5-14.5) 13.4 % (11.5-14.5) 13.6 % (11.5-14.5) Platelet Count 244 10^3/uL (150-400) 276 10^3/uL (150-400) 303 10^3/uL (150-400) Mean Platelet Volume 9.1 fL (7.8-11.0) 9.1 fL (7.8-11.0) 8.7 fL (7.8-11.0) Neutrophils (%) (Auto) 77.1 % (41.0-85.0) 80.6 % (41.0-85.0) 83.7 % (41.0-85.0) Lymphocytes (%) (Auto) 16.0 % (24.0-44.0) 14.1 % (24.0-44.0) 10.7 % (24.0-44.0) Monocytes (%) (Auto) 5.8 % (5.0-12.0) 4.7 % (5.0-12.0) 4.0 % (5.0-12.0) Neutrophils # (Auto) 6.3 10^3/uL (1.8-7.7) 8.1 10^3/uL (1.8-7.7) 9.7 10^3/uL (1.8-7.7) Lymphocytes # (Auto) 1.30 10^3/uL1 (1.0-4.8) 1.41 10^3/uL1 (1.0-4.8) 1.24 10^3/uL1 (1.0-4.8) Monocytes # (Auto) 0.5 10^3/uL (0.3-0.8) 0.5 10^3/uL (0.3-0.8) 0.5 10^3/uL (0.3-0.8) Absolute Immature Granulocyte (auto 0.07 10^3 u/L (0-2) 0.10 10^3 u/L (0-2) 0.15 10^3 u/L (0-2) Absolute Eosinophils (auto) 0.0 10^3/uL (0.0-0.2) 0.1 10^3/uL (0.0-0.2) 0.2 10^3/uL (0.0-0.2) Immature Granulocytes % 0.90 % (0.00-0.50) 1.00 % (0.00-0.50) 1.30 % (0.00-0.50) Eosinophils % 0.1 % (0.0-5.0) 0.5 % (0.0-5.0) 1.6 % (0.0-5.0) Basophils % 0.1 % (0.0-0.2) 0.1 % (0.0-0.2) 0.0 % (0.0-0.2) Basophils # 0.0 10^3/uL (0.0-0.1) 0.0 10^3/uL (0.0-0.1) 0.0 10^3/uL (0.0-0.1) Sodium Level 142 mmol/L (132-145) 143 mmol/L (132-145) 143 mmol/L (132-145) Potassium Level 3.2 mmol/L (3.6-5.2) 3.0 mmol/L (3.6-5.2) 3.4 mmol/L (3.6-5.2) Chloride Level 104.0 mmol/L (96-109) 104.0 mmol/L (96-109) 105.0 mmol/L (96-109) Carbon Dioxide Level 34.3 mmol/L (20.0-32) 32.5 mmol/L (20.0-32) 33.3 mmol/L (20.0-32) Anion Gap 6.9 9.5 8.1 Blood Urea Nitrogen 27 mg/dL (7-18) 27 mg/dL (7-18) 26 mg/dL (7-18) Creatinine 1.11 mg/dL (0.59-1.40) 1.03 mg/dL (0.59-1.40) 1.13 mg/dL (0.59-1.40) Estimated GFR () 80.4 (>/=60) 87.7 (>/=60) 78.8 (>/=60) Est GFR (CKD-EPI)(Non-Afr Moroccan) 66.5 (>/=60) 72.5 (>/=60) 65.1 (>/=60) BUN/Creatinine Ratio 24.0 26.0 23.0 Glucose Level 108 mg/dL (70-110) 96 mg/dL (70-110) 98 mg/dL (70-110) Calcium Level 8.1 mg/dL (8.4-10.5) 8.2 mg/dL (8.4-10.5) 8.4 mg/dL (8.4-10.5) Total Bilirubin 0.5 mg/dL (0.2-1.0) 0.5 mg/dL (0.2-1.0) 0.6 mg/dL (0.2-1.0) Aspartate Amino Transf (AST/SGOT) 94 U/L (0-35) 56 U/L (0-35) 54 U/L (0-35) Alanine Aminotransferase (ALT/SGPT) 285 U/L (12-78) 224 U/L (12-78) 201 U/L (12-78) Alkaline Phosphatase 81 U/L (50-136) 82 U/L (50-136) 84 U/L (50-136) Pro-B-Type Natriuretic Peptide 157 pg/mL (0-125) 115 pg/mL (0-125) Total Protein 5.9 g/dL (6.4-8.2) 5.9 g/dL (6.4-8.2) 5.9 g/dL (6.4-8.2) Albumin 2.5 g/dL (3.4-5.0) 2.5 g/dL (3.4-5.0) 2.5 g/dL (3.4-5.0) Globulin 3.4 3.4 3.4 Albumin/Globulin Ratio 0.735 0.735 0.735 Triglycerides Level 77 mg/dL (20-200) Total Creatine Kinase 74 U/L (39-308) Creatine Kinase MB < 0.5 ng/mL (0.5-3.6) Troponin I < 0.02 ng/mL (0.00-0.05) ASSESSMENT Acute viral pneumonia Acute hypoxemic respiratory failure COVID-19 infection PLAN Continue current management wean oxygen off as tolerated, await echocardiogram results SEENLIONEL PYLE MD Jul 13, 2021 20:19
--- NOTE | 2021-07-13 20:25 | PRM.PN ---
PROGRESS NOTE SUBJECTIVE Feeling better, coughing with p.o. intake as per nursing staffSpecially with solid food OBJECTIVE Vital Signs Date Time Temp Pulse Resp B/P (MAP) Pulse Ox O2 Delivery O2 Flow Rate FiO2 07/13/21 20:05 117/82 07/13/21 19:59 98.9 74 16 117/82 (94) 94 07/13/21 17:04 98.6 71 19 106/49 (68) 94 07/13/21 16:58 63 20 94 Comfort Jomar 07/13/21 15:13 63 20 94 07/13/21 11:53 98.5 63 20 101/69 (80) 94 07/13/21 10:55 Comfort Jomar 35.00 07/13/21 10:54 81 18 98 Comfort Jomar 30.00 50 07/13/21 09:03 101/64 07/13/21 08:10 98.7 81 18 101/64 (76) 95 Comfort Flow HEENT mucous membrane is moist neck supple Lungs bilateral lower lobe Rales present,No wheezing Heart S1-S2 heard no murmur gallop appreciated Abdomen soft Bowel sounds present nontender no guarding Extremities no edema no calf tenderness Laboratory Tests Test 07/11/21 06:00 07/12/21 05:50 07/13/21 05:23 White Blood Count 8.2 10^3/uL (4.5-11.0) 10.0 10^3/uL (4.5-11.0) 11.6 10^3/uL (4.5-11.0) Red Blood Count 4.84 10^6/uL (4.50-5.90) 4.78 10^6/uL (4.50-5.90) 4.85 10^6/uL (4.50-5.90) Hemoglobin 14.2 g/dL (13.9-16.3) 14.3 g/dL (13.9-16.3) 14.5 g/dL (13.9-16.3) Hematocrit 44.5 % (37.0-53.0) 43.4 % (37.0-53.0) 44.5 % (37.0-53.0) Mean Corpuscular Volume 91.9 fL (78-100) 90.8 fL (78-100) 91.8 fL (78-100) Mean Corpuscular Hemoglobin 29.3 pg (26-34) 29.9 pg (26-34) 29.9 pg (26-34) Mean Corpuscular Hemoglobin Concent 31.9 g/dL (33-36.5) 32.9 g/dL (33-36.5) 32.6 g/dL (33-36.5) Red Cell Distribution Width 13.8 % (11.5-14.5) 13.4 % (11.5-14.5) 13.6 % (11.5-14.5) Platelet Count 244 10^3/uL (150-400) 276 10^3/uL (150-400) 303 10^3/uL (150-400) Mean Platelet Volume 9.1 fL (7.8-11.0) 9.1 fL (7.8-11.0) 8.7 fL (7.8-11.0) Neutrophils (%) (Auto) 77.1 % (41.0-85.0) 80.6 % (41.0-85.0) 83.7 % (41.0-85.0) Lymphocytes (%) (Auto) 16.0 % (24.0-44.0) 14.1 % (24.0-44.0) 10.7 % (24.0-44.0) Monocytes (%) (Auto) 5.8 % (5.0-12.0) 4.7 % (5.0-12.0) 4.0 % (5.0-12.0) Neutrophils # (Auto) 6.3 10^3/uL (1.8-7.7) 8.1 10^3/uL (1.8-7.7) 9.7 10^3/uL (1.8-7.7) Lymphocytes # (Auto) 1.30 10^3/uL1 (1.0-4.8) 1.41 10^3/uL1 (1.0-4.8) 1.24 10^3/uL1 (1.0-4.8) Monocytes # (Auto) 0.5 10^3/uL (0.3-0.8) 0.5 10^3/uL (0.3-0.8) 0.5 10^3/uL (0.3-0.8) Absolute Immature Granulocyte (auto 0.07 10^3 u/L (0-2) 0.10 10^3 u/L (0-2) 0.15 10^3 u/L (0-2) Absolute Eosinophils (auto) 0.0 10^3/uL (0.0-0.2) 0.1 10^3/uL (0.0-0.2) 0.2 10^3/uL (0.0-0.2) Immature Granulocytes % 0.90 % (0.00-0.50) 1.00 % (0.00-0.50) 1.30 % (0.00-0.50) Eosinophils % 0.1 % (0.0-5.0) 0.5 % (0.0-5.0) 1.6 % (0.0-5.0) Basophils % 0.1 % (0.0-0.2) 0.1 % (0.0-0.2) 0.0 % (0.0-0.2) Basophils # 0.0 10^3/uL (0.0-0.1) 0.0 10^3/uL (0.0-0.1) 0.0 10^3/uL (0.0-0.1) Sodium Level 142 mmol/L (132-145) 143 mmol/L (132-145) 143 mmol/L (132-145) Potassium Level 3.2 mmol/L (3.6-5.2) 3.0 mmol/L (3.6-5.2) 3.4 mmol/L (3.6-5.2) Chloride Level 104.0 mmol/L (96-109) 104.0 mmol/L (96-109) 105.0 mmol/L (96-109) Carbon Dioxide Level 34.3 mmol/L (20.0-32) 32.5 mmol/L (20.0-32) 33.3 mmol/L (20.0-32) Anion Gap 6.9 9.5 8.1 Blood Urea Nitrogen 27 mg/dL (7-18) 27 mg/dL (7-18) 26 mg/dL (7-18) Creatinine 1.11 mg/dL (0.59-1.40) 1.03 mg/dL (0.59-1.40) 1.13 mg/dL (0.59-1.40) Estimated GFR () 80.4 (>/=60) 87.7 (>/=60) 78.8 (>/=60) Est GFR (CKD-EPI)(Non-Afr Azerbaijani) 66.5 (>/=60) 72.5 (>/=60) 65.1 (>/=60) BUN/Creatinine Ratio 24.0 26.0 23.0 Glucose Level 108 mg/dL (70-110) 96 mg/dL (70-110) 98 mg/dL (70-110) Calcium Level 8.1 mg/dL (8.4-10.5) 8.2 mg/dL (8.4-10.5) 8.4 mg/dL (8.4-10.5) Total Bilirubin 0.5 mg/dL (0.2-1.0) 0.5 mg/dL (0.2-1.0) 0.6 mg/dL (0.2-1.0) Aspartate Amino Transf (AST/SGOT) 94 U/L (0-35) 56 U/L (0-35) 54 U/L (0-35) Alanine Aminotransferase (ALT/SGPT) 285 U/L (12-78) 224 U/L (12-78) 201 U/L (12-78) Alkaline Phosphatase 81 U/L (50-136) 82 U/L (50-136) 84 U/L (50-136) Pro-B-Type Natriuretic Peptide 157 pg/mL (0-125) 115 pg/mL (0-125) Total Protein 5.9 g/dL (6.4-8.2) 5.9 g/dL (6.4-8.2) 5.9 g/dL (6.4-8.2) Albumin 2.5 g/dL (3.4-5.0) 2.5 g/dL (3.4-5.0) 2.5 g/dL (3.4-5.0) Globulin 3.4 3.4 3.4 Albumin/Globulin Ratio 0.735 0.735 0.735 Triglycerides Level 77 mg/dL (20-200) Total Creatine Kinase 74 U/L (39-308) Creatine Kinase MB < 0.5 ng/mL (0.5-3.6) Troponin I < 0.02 ng/mL (0.00-0.05) ASSESSMENT Pneumonia secondary to Covid infection Acute hypoxemic Respiratory failure improving Rule out dysphagia with aspiration PLAN Speech evaluation honey thick liquid diet and pured diet until evaluation is done LIONEL ZHENG MD Jul 13, 2021 20:25
[2021-07-14 00:04] VITALS: BP 126/73
[2021-07-14] MEDS: MELATONIN PO PRN ×2 (00:05→21:29)
--- NOTE | 2021-07-14 00:15 | NUR ---
PT RIPPED COMFORT NICOLETTE TUBING. NON REBREATHER WAS PLACED WHILE AWAITING RESPIRATORY TO ARRIVE.
--- NOTE | 2021-07-14 00:45 | NUR ---
PT HAS BEEN PLACED ON COMFORT NICOLETTE AGAIN BY RT. 02 IS 95% AND IS STABLE
[2021-07-14] MEDS: COMBIVENT RESPIMAT 20-100 MCG IH SCH ×2 (04:06→08:51)
[2021-07-14 04:41] VITALS: BP 118/79
[2021-07-14 04:56] LABS: BASOPHIL % 0.1 % (0.0-0.2); EOSINOPHIL # 0.2 10^3/uL (0.0-0.2); EOSINOPHIL % 1.8 % (0.0-5.0); LYMPHOCYTES # 1.14 10^3/uL1 (1.0-4.8); MEAN CORP HGB 30.1 pg (26-34); MONOCYTES # 0.5 10^3/uL (0.3-0.8); NEUTROPHIL # 10.7 10^3/uL (1.8-7.7); NEUTROPHILS % 85.1 % (41.0-85.0); PLATELET COUNT 331 10^3/uL (150-400); RED CELL DISTRIBUTION WIDTH 13.3 % (11.5-14.5)
[2021-07-14 05:12] LABS: CALCIUM 8.4 mg/dL (8.4-10.5); CARBON DIOXIDE 32.3 mmol/L (20.0-32)
[2021-07-14 07:48] VITALS: BP 116/68
[2021-07-14] MEDS: KLOR-CON 10 PO SCH ×2 (09:21→21:00)
[2021-07-14] MEDS: ROCEPHIN 1,000 MG in NS 100ML 100 ML IV SCH (09:21)
[2021-07-14] MEDS: LOVENOX SQ SCH (09:21)
[2021-07-14] MEDS: LASIX IV SCH ×2 (09:21→21:00)
[2021-07-14] MEDS: PROTONIX PO SCH (09:21)
[2021-07-14] MEDS: DEXAMETHASONE 10 MG/ML VIAL IV SCH (09:21)
[2021-07-14] MEDS: ZITHROMAX 500 MG in NS 250ML 250 ML IV SCH (11:00)
[2021-07-14 11:47] VITALS: BP 118/74
[2021-07-14] MEDS ORDERED: XANAX PO STA (13:35)
[2021-07-14 16:41] VITALS: BP 108/68
[2021-07-14] MEDS ORDERED: XANAX PO PRN (19:00)
--- NOTE | 2021-07-14 19:44 | PRM.PN ---
PROGRESS NOTE SUBJECTIVE Feeling better not able to sleep last night and reduce appetite OBJECTIVE Vital Signs Date Time Temp Pulse Resp B/P (MAP) Pulse Ox O2 Delivery O2 Flow Rate FiO2 07/14/21 18:04 71 19 95 Comfort Jomar 30.00 50 07/14/21 16:41 98.1 71 19 108/68 (81) 95 07/14/21 11:52 Comfort Jomar 35.00 07/14/21 11:47 97.9 64 20 118/74 (89) 98 07/14/21 09:21 116/68 07/14/21 08:52 63 18 94 Comfort Jomar 30.00 50 07/14/21 08:52 63 18 94 07/14/21 07:48 97.8 55 19 116/68 (84) 94 HEENT anicteric sclera pupil react light mucous membrane moist Lungs a few right basal Rales present no wheezes heard Heart S1-S2 heard normal heart sound no murmur gallop appreciated Abdomen soft nontender bowel sounds present Extremities no edema no calf tenderness noted Laboratory Tests Test 07/12/21 05:50 07/13/21 05:23 07/14/21 04:33 White Blood Count 10.0 10^3/uL (4.5-11.0) 11.6 10^3/uL (4.5-11.0) 12.6 10^3/uL (4.5-11.0) Red Blood Count 4.78 10^6/uL (4.50-5.90) 4.85 10^6/uL (4.50-5.90) 4.69 10^6/uL (4.50-5.90) Hemoglobin 14.3 g/dL (13.9-16.3) 14.5 g/dL (13.9-16.3) 14.1 g/dL (13.9-16.3) Hematocrit 43.4 % (37.0-53.0) 44.5 % (37.0-53.0) 42.3 % (37.0-53.0) Mean Corpuscular Volume 90.8 fL (78-100) 91.8 fL (78-100) 90.2 fL (78-100) Mean Corpuscular Hemoglobin 29.9 pg (26-34) 29.9 pg (26-34) 30.1 pg (26-34) Mean Corpuscular Hemoglobin Concent 32.9 g/dL (33-36.5) 32.6 g/dL (33-36.5) 33.3 g/dL (33-36.5) Red Cell Distribution Width 13.4 % (11.5-14.5) 13.6 % (11.5-14.5) 13.3 % (11.5-14.5) Platelet Count 276 10^3/uL (150-400) 303 10^3/uL (150-400) 331 10^3/uL (150-400) Mean Platelet Volume 9.1 fL (7.8-11.0) 8.7 fL (7.8-11.0) 8.8 fL (7.8-11.0) Neutrophils (%) (Auto) 80.6 % (41.0-85.0) 83.7 % (41.0-85.0) 85.1 % (41.0-85.0) Lymphocytes (%) (Auto) 14.1 % (24.0-44.0) 10.7 % (24.0-44.0) 9.0 % (24.0-44.0) Monocytes (%) (Auto) 4.7 % (5.0-12.0) 4.0 % (5.0-12.0) 4.0 % (5.0-12.0) Neutrophils # (Auto) 8.1 10^3/uL (1.8-7.7) 9.7 10^3/uL (1.8-7.7) 10.7 10^3/uL (1.8-7.7) Lymphocytes # (Auto) 1.41 10^3/uL1 (1.0-4.8) 1.24 10^3/uL1 (1.0-4.8) 1.14 10^3/uL1 (1.0-4.8) Monocytes # (Auto) 0.5 10^3/uL (0.3-0.8) 0.5 10^3/uL (0.3-0.8) 0.5 10^3/uL (0.3-0.8) Absolute Immature Granulocyte (auto 0.10 10^3 u/L (0-2) 0.15 10^3 u/L (0-2) 0.15 10^3 u/L (0-2) Absolute Eosinophils (auto) 0.1 10^3/uL (0.0-0.2) 0.2 10^3/uL (0.0-0.2) 0.2 10^3/uL (0.0-0.2) Immature Granulocytes % 1.00 % (0.00-0.50) 1.30 % (0.00-0.50) 1.20 % (0.00-0.50) Eosinophils % 0.5 % (0.0-5.0) 1.6 % (0.0-5.0) 1.8 % (0.0-5.0) Basophils % 0.1 % (0.0-0.2) 0.0 % (0.0-0.2) 0.1 % (0.0-0.2) Basophils # 0.0 10^3/uL (0.0-0.1) 0.0 10^3/uL (0.0-0.1) 0.0 10^3/uL (0.0-0.1) Sodium Level 143 mmol/L (132-145) 143 mmol/L (132-145) 143 mmol/L (132-145) Potassium Level 3.0 mmol/L (3.6-5.2) 3.4 mmol/L (3.6-5.2) 3.7 mmol/L (3.6-5.2) Chloride Level 104.0 mmol/L (96-109) 105.0 mmol/L (96-109) 105.0 mmol/L (96-109) Carbon Dioxide Level 32.5 mmol/L (20.0-32) 33.3 mmol/L (20.0-32) 32.3 mmol/L (20.0-32) Anion Gap 9.5 8.1 9.4 Blood Urea Nitrogen 27 mg/dL (7-18) 26 mg/dL (7-18) 30 mg/dL (7-18) Creatinine 1.03 mg/dL (0.59-1.40) 1.13 mg/dL (0.59-1.40) 1.04 mg/dL (0.59-1.40) Estimated GFR () 87.7 (>/=60) 78.8 (>/=60) 86.7 (>/=60) Est GFR (CKD-EPI)(Non-Afr [place]) 72.5 (>/=60) 65.1 (>/=60) 71.7 (>/=60) BUN/Creatinine Ratio 26.0 23.0 28.0 Glucose Level 96 mg/dL (70-110) 98 mg/dL (70-110) 99 mg/dL (70-110) Calcium Level 8.2 mg/dL (8.4-10.5) 8.4 mg/dL (8.4-10.5) 8.4 mg/dL (8.4-10.5) Total Bilirubin 0.5 mg/dL (0.2-1.0) 0.6 mg/dL (0.2-1.0) 0.6 mg/dL (0.2-1.0) Aspartate Amino Transf (AST/SGOT) 56 U/L (0-35) 54 U/L (0-35) 34 U/L (0-35) Alanine Aminotransferase (ALT/SGPT) 224 U/L (12-78) 201 U/L (12-78) 164 U/L (12-78) Alkaline Phosphatase 82 U/L (50-136) 84 U/L (50-136) 76 U/L (50-136) Total Creatine Kinase 74 U/L (39-308) Creatine Kinase MB < 0.5 ng/mL (0.5-3.6) Troponin I < 0.02 ng/mL (0.00-0.05) Pro-B-Type Natriuretic Peptide 115 pg/mL (0-125) Total Protein 5.9 g/dL (6.4-8.2) 5.9 g/dL (6.4-8.2) 5.8 g/dL (6.4-8.2) Albumin 2.5 g/dL (3.4-5.0) 2.5 g/dL (3.4-5.0) 2.5 g/dL (3.4-5.0) Globulin 3.4 3.4 3.3 Albumin/Globulin Ratio 0.735 0.735 0.757 ASSESSMENT Pneumonia secondary to Covid infection Acute hypoxemic Respiratory failure improving Rule out dysphagia with aspiration PLAN We will reduce the FiO2 to 40% and continue rest of the management same and nighttime we will add Xanax for insomnia and anxiety and reevaluate the patient in a.m. Continue to wean oxygen and high flow as tolerated to keep saturation above 90% LIONEL ZHENG MD Jul 14, 2021 19:44
[2021-07-14 20:00] VITALS: BP 128/62
[2021-07-15] VITALS: BP_SYST 105; BP_SYST 147; BP_DIAS 68; BP_DIAS 78
[2021-07-15] MEDS: COMBIVENT RESPIMAT 20-100 MCG IH SCH ×2 (03:59→10:52)
[2021-07-15 04:00] VITALS: BP 101/62
[2021-07-15 07:53] VITALS: BP 99/68
--- NOTE | 2021-07-15 09:45 | NUR ---
STATUS PT STATES, "I DONT GIVE A FUCK WHAT YALL DO, YALL DONT KNOW WHAT YOU ARE DOING, I WANT TO LEAVE." PT EDUCATED ON COVID DISEASE PROCESS AND NEED FOR HOSPITALIZATION, STATES, "I DONT FUCKING CARE, I WANT TO GO HOME." PT EDUCATED ON AMA PAPERWORK. VERBALIZED UNDERSTANDING. STATES, "I WILL SIGN THAT PAPERWORK SO I CAN GO HOME, MY TRUCK IS ACROSS THE [address] IN THE PARKING LOT SO I CAN LEAVE." DR DE PAZ NOTIFIED AND PT FAMILY NOTIFIED.
[2021-07-15] MEDS: LASIX IV SCH (09:49)
[2021-07-15] MEDS: DEXAMETHASONE 10 MG/ML VIAL IV SCH (09:49)
[2021-07-15] MEDS: PROTONIX PO SCH (09:49)
[2021-07-15] MEDS: KLOR-CON 10 PO SCH (09:49)
[2021-07-15] MEDS: ROCEPHIN 1,000 MG in NS 100ML 100 ML IV SCH (09:50)
[2021-07-15] MEDS: LOVENOX SQ SCH (09:51)
--- NOTE | 2021-07-15 10:32 | NUR ---
O2 PT PLACED ON 3 L NC O2 SATS 92%, NO S/S OF DISTRESS NOTED. WILL CONT WITH PLAN OF CARE. DR DE PAZ AND RT NOTIFIED.
--- NOTE | 2021-07-15 10:40 | NUR ---
STATUS PT STATES, "I WILL WAIT TO BE DISCHARGED IF I WILL BE SENT HOME ON OXYGEN." PT EDUCATED ON DISCHARGE PROCESS AND OBTAINING HOME O2. VERBALIZED UNDERSTANDING. PT NOTIFIED. CASE MANAGEMENT NOTIFIED. DR DE PAZ NOTIFIED.
--- NOTE | 2021-07-15 11:06 | NUR ---
ROOM AIR CHALLENGE PT RESTING ROOM AIR RATE 84%, PT PLACED ON 3L NC PT O2 90%. NO S/S OF DISTRESS NOTED.
--- NOTE | 2021-07-15 11:39 | PRM.PN ---
Subjective Subjective Date: Jul 15, 2021 Time: 11:38 Subjective Patient is on 3 liters NC and is requesting discharge on home oxygen; he does not wish to be in the hospital any longer Patient History: Non-contributory VTE VTE Risk Total Score: 2 VTE Risk Score VTE Risk: Score 0-1 = Low Risk (Aggressive mobilization; early ambulation; no VTE prophylaxis required) Score 2: Moderate Risk (Intermittent/Pneumatic Compression Device OR Lovenox/Heparin/Coumadin) Score 3-4: High Risk (Intermittent/Pneumatic Compression Device AND Lovenox/Heparin/Coumadin) Score > or =5: Highest Risk (Intermittent/Pneumatic Compression Device AND Lovenox/Heparin/Coumadin) Review of Systems Allergies: Coded Allergies: No Known Drug Allergies (Verified Allergy, Unknown, 07/11/21) Objective Vitals and I/O Vital Sign - Last 24 Hours 07/15/21 07/15/21 07/15/21 07/15/21 07:53 08:52 08:52 09:49 Temp 98.3 Pulse 65 65 65 Resp 17 17 17 B/P (MAP) 99/68 (78) 99/68 Pulse Ox 97 97 97 O2 Delivery Comfort Jomar O2 Flow Rate 30.00 FiO2 50 07/15/21 11:09 O2 Delivery Nasal Cannula O2 Flow Rate 3.00 Intake and Output 07/15/21 07:00 Intake Total 118 ml Output Total 900 ml Balance -782 ml Lungs: Other (left lower lobe crackles present , 6 liters NC ) Heart: Regular rate, Normal S1, Normal S2, No murmurs, Gallops, Rubs Abdomen: Normal bowel sounds, Soft, No tenderness, No hepatospenomegaly, No masses Skin: No rashes, No breakdown, No significant lesion All Results(Lab/Rad) Current Medications Medications (Trade) Dose Ordered Sig/Rocael Route PRN Reason Start Time Stop Time Status Last Admin Dose Admin Acetaminophen (Tylenol) 1,000 mg Q6H PRN PO PAIN 1 - 3 07/09/21 02:00 08/08/21 01:59 07/09/21 20:25 Pantoprazole Sodium (Protonix) 40 mg DAILY PO 07/09/21 09:00 08/08/21 08:59 07/15/21 09:49 Furosemide (Lasix) 40 mg BID IV 07/09/21 09:00 08/08/21 08:59 07/15/21 09:49 Azithromycin 500 mg/Sodium Chloride 250 ml @ 175 mls/hr Q24HRS IV 07/09/21 10:00 08/08/21 09:59 07/14/21 11:00 Ceftriaxone Sodium 1000 mg/ Sodium Chloride 100 ml @ 100 mls/hr Q24HRS IV 07/09/21 09:00 08/08/21 08:59 07/15/21 09:50 Remdesivir 200 mg/ Sodium Chloride 140 ml @ 120.69 mls/ hr OT STAT IV 07/09/21 01:46 07/09/21 08:10 DC 07/09/21 01:46 Remdesivir 100 mg/ Sodium Chloride 120 ml @ 111.111 mls/hr Q24HRS IV 07/10/21 02:00 07/13/21 11:55 DC 07/13/21 01:25 Sodium Chloride 500 ml @ ud STK-MED ONCE IV 07/09/21 03:05 07/09/21 03:05 DC Furosemide (Lasix) 40 mg STK-MED ONCE .ROUTE 07/09/21 07:55 07/09/21 07:55 DC Sodium Chloride 100 ml @ ud STK-MED ONCE IV 07/09/21 07:55 07/09/21 07:55 DC Ceftriaxone Sodium (Rocephin) 1,000 mg STK-MED ONCE .ROUTE 07/09/21 07:55 07/09/21 07:55 DC Lanolin (Lanolin Hydrous) 28 gm STK-MED ONCE TP 07/10/21 08:21 07/10/21 08:22 DC Enoxaparin Sodium (Lovenox) 40 mg Q24HRS SQ 07/10/21 09:00 08/09/21 08:59 07/15/21 09:51 Potassium Chloride (Klor-Con 10) 20 meq DAILY PO 07/10/21 21:00 07/12/21 08:03 DC 07/11/21 08:45 Sodium Chloride 500 ml @ ud STK-MED ONCE IV 07/11/21 08:25 07/11/21 08:25 DC Propofol (Diprivan) Diprivan IV infusion tritra... TITRATE PRN IV sedation 07/11/21 14:00 08/10/21 13:59 UNV Propofol (Diprivan) STAT STAT IV 07/11/21 13:36 07/11/21 13:37 UNV Melatonin (Melatonin) 3 mg HS PRN PO INSOMNIA 07/11/21 16:30 08/10/21 16:29 07/14/21 21:29 Albuterol/ Ipratropium (Combivent Respimat 20-100 Mcg) 120 inh STK-MED ONCE IH 07/12/21 01:12 07/12/21 01:12 DC Albuterol/ Ipratropium (Combivent Respimat 20-100 Mcg) 1 inh RTQ6H IH 07/12/21 01:30 08/11/21 01:29 07/15/21 10:52 Potassium Chloride (Klor-Con 10) 20 meq BID PO 07/12/21 09:00 08/11/21 08:59 07/15/21 09:49 Nitroglycerin (Nitrostat) 0.4 mg PRN STAT SL 07/12/21 09:50 07/12/21 11:01 DC Sodium Chloride 250 ml @ ud STK-MED ONCE .ROUTE 07/13/21 08:41 07/13/21 08:42 DC Alprazolam (Xanax) 0.5 mg STAT STAT PO 07/14/21 13:35 07/14/21 13:55 DC Alprazolam (Xanax) 0.5 mg HS PRN PO ANXIETY 07/14/21 19:00 08/13/21 18:59 07/14/21 21:29 Course Sepsis Screening Results: Posi: POSITIVE Sepsis Qualifier/Stage: SEPSIS RISK DATE SEEN BY PHYSICIAN: Jul 09, 2021 TIME SEEN BY PROVIDER: 10:00 Vitals & review Data Vital Sign - Last 24 Hours 07/15/21 07/15/21 07/15/21 07/15/21 07:53 08:52 08:52 09:49 Temp 98.3 Pulse 65 65 65 Resp 17 17 17 B/P (MAP) 99/68 (78) 99/68 Pulse Ox 97 97 97 O2 Delivery Comfort Jomar O2 Flow Rate 30.00 FiO2 50 07/15/21 11:09 O2 Delivery Nasal Cannula O2 Flow Rate 3.00 Intake and Output 07/15/21 07:00 Intake Total 118 ml Output Total 900 ml Balance -782 ml Laboratory Tests Test 07/14/21 04:33 White Blood Count 12.6 10^3/uL Red Blood Count 4.69 10^6/uL Hemoglobin 14.1 g/dL Hematocrit 42.3 % Mean Corpuscular Volume 90.2 fL Mean Corpuscular Hemoglobin 30.1 pg Mean Corpuscular Hemoglobin Concent 33.3 g/dL Red Cell Distribution Width 13.3 % Platelet Count 331 10^3/uL Mean Platelet Volume 8.8 fL Neutrophils (%) (Auto) 85.1 % Lymphocytes (%) (Auto) 9.0 % Monocytes (%) (Auto) 4.0 % Neutrophils # (Auto) 10.7 10^3/uL Lymphocytes # (Auto) 1.14 10^3/uL1 Monocytes # (Auto) 0.5 10^3/uL Absolute Immature Granulocyte (auto 0.15 10^3 u/L Absolute Eosinophils (auto) 0.2 10^3/uL Immature Granulocytes % 1.20 % Eosinophils % 1.8 % Basophils % 0.1 % Basophils # 0.0 10^3/uL Sodium Level 143 mmol/L Potassium Level 3.7 mmol/L Chloride Level 105.0 mmol/L Carbon Dioxide Level 32.3 mmol/L Anion Gap 9.4 Blood Urea Nitrogen 30 mg/dL Creatinine 1.04 mg/dL Estimated GFR () 86.7 Est GFR (CKD-EPI)(Non-Afr [place]) 71.7 BUN/Creatinine Ratio 28.0 Glucose Level 99 mg/dL Calcium Level 8.4 mg/dL Total Bilirubin 0.6 mg/dL Aspartate Amino Transf (AST/SGOT) 34 U/L Alanine Aminotransferase (ALT/SGPT) 164 U/L Alkaline Phosphatase 76 U/L Total Protein 5.8 g/dL Albumin 2.5 g/dL Globulin 3.3 Albumin/Globulin Ratio 0.757 Current Medications Medications (Trade) Dose Ordered Sig/Rocael PRN Reason Start Time Stop Time Status Last Admin Alprazolam (Xanax) 0.5 mg HS PRN ANXIETY 07/14/21 19:00 08/13/21 18:59 07/14/21 21:29 LEVEL 1 SEPSIS INFECTION CRITE: ABX Therapy LEVEL 2-SIRS (LIST ALL THAT AP: None/Not assessed Cardiovascular Evidence: Not Assessed or None Hematologic Evidence: None/Not assessed Hepatic Evidence: None/Not assessed Metabolic Evidence: None/Not assessed Neurological Evidence: None/Not assessed Respiratory Evidence: Need for O2 to keep>90% Renal Evidence: None/Not assessed O2 Sat by Pulse Oximetry: 97 Oxygen Flow Rate: 3.00 ABBEY DE PAZ MD Jul 15, 2021 11:39
[2021-07-15 12:14] VITALS: BP 96/62
--- NOTE | 2021-07-15 12:18 | PRM.DC ---
Discharge Summary Date of Discharge: Jul 15, 2021 Time of Request to Discharge: 12:18 Patient History: Non-contributory Sepsis Evaluation @ Discharge Vital Sign - Last 24 Hours 07/15/21 07/15/21 07/15/21 07/15/21 07:53 08:52 08:52 09:49 Temp 98.3 Pulse 65 65 65 Resp 17 17 17 B/P (MAP) 99/68 (78) 99/68 Pulse Ox 97 97 97 O2 Delivery Comfort Jomar O2 Flow Rate 30.00 FiO2 50 07/15/21 11:09 O2 Delivery Nasal Cannula O2 Flow Rate 3.00 Intake and Output 07/15/21 07:00 Intake Total 118 ml Output Total 900 ml Balance -782 ml Laboratory Tests Test 07/14/21 04:33 White Blood Count 12.6 10^3/uL Red Blood Count 4.69 10^6/uL Hemoglobin 14.1 g/dL Hematocrit 42.3 % Mean Corpuscular Volume 90.2 fL Mean Corpuscular Hemoglobin 30.1 pg Mean Corpuscular Hemoglobin Concent 33.3 g/dL Red Cell Distribution Width 13.3 % Platelet Count 331 10^3/uL Mean Platelet Volume 8.8 fL Neutrophils (%) (Auto) 85.1 % Lymphocytes (%) (Auto) 9.0 % Monocytes (%) (Auto) 4.0 % Neutrophils # (Auto) 10.7 10^3/uL Lymphocytes # (Auto) 1.14 10^3/uL1 Monocytes # (Auto) 0.5 10^3/uL Absolute Immature Granulocyte (auto 0.15 10^3 u/L Absolute Eosinophils (auto) 0.2 10^3/uL Immature Granulocytes % 1.20 % Eosinophils % 1.8 % Basophils % 0.1 % Basophils # 0.0 10^3/uL Sodium Level 143 mmol/L Potassium Level 3.7 mmol/L Chloride Level 105.0 mmol/L Carbon Dioxide Level 32.3 mmol/L Anion Gap 9.4 Blood Urea Nitrogen 30 mg/dL Creatinine 1.04 mg/dL Estimated GFR () 86.7 Est GFR (CKD-EPI)(Non-Afr Italian) 71.7 BUN/Creatinine Ratio 28.0 Glucose Level 99 mg/dL Calcium Level 8.4 mg/dL Total Bilirubin 0.6 mg/dL Aspartate Amino Transf (AST/SGOT) 34 U/L Alanine Aminotransferase (ALT/SGPT) 164 U/L Alkaline Phosphatase 76 U/L Total Protein 5.8 g/dL Albumin 2.5 g/dL Globulin 3.3 Albumin/Globulin Ratio 0.757 Current Medications Medications (Trade) Dose Ordered Sig/Rocael PRN Reason Start Time Stop Time Status Last Admin Alprazolam (Xanax) 0.5 mg HS PRN ANXIETY 07/14/21 19:00 08/13/21 18:59 07/14/21 21:29 Course Sepsis Screening Results: Posi: POSITIVE Sepsis Qualifier/Stage: SEPSIS RISK DATE SEEN BY PHYSICIAN: Jul 09, 2021 TIME SEEN BY PROVIDER: 10:00 Vitals & review Data Vital Sign - Last 24 Hours 07/15/21 07/15/21 07/15/21 07/15/21 07:53 08:52 08:52 09:49 Temp 98.3 Pulse 65 65 65 Resp 17 17 17 B/P (MAP) 99/68 (78) 99/68 Pulse Ox 97 97 97 O2 Delivery Comfort Jomar O2 Flow Rate 30.00 FiO2 50 07/15/21 11:09 O2 Delivery Nasal Cannula O2 Flow Rate 3.00 Intake and Output 07/15/21 07:00 Intake Total 118 ml Output Total 900 ml Balance -782 ml Laboratory Tests Test 07/14/21 04:33 White Blood Count 12.6 10^3/uL Red Blood Count 4.69 10^6/uL Hemoglobin 14.1 g/dL Hematocrit 42.3 % Mean Corpuscular Volume 90.2 fL Mean Corpuscular Hemoglobin 30.1 pg Mean Corpuscular Hemoglobin Concent 33.3 g/dL Red Cell Distribution Width 13.3 % Platelet Count 331 10^3/uL Mean Platelet Volume 8.8 fL Neutrophils (%) (Auto) 85.1 % Lymphocytes (%) (Auto) 9.0 % Monocytes (%) (Auto) 4.0 % Neutrophils # (Auto) 10.7 10^3/uL Lymphocytes # (Auto) 1.14 10^3/uL1 Monocytes # (Auto) 0.5 10^3/uL Absolute Immature Granulocyte (auto 0.15 10^3 u/L Absolute Eosinophils (auto) 0.2 10^3/uL Immature Granulocytes % 1.20 % Eosinophils % 1.8 % Basophils % 0.1 % Basophils # 0.0 10^3/uL Sodium Level 143 mmol/L Potassium Level 3.7 mmol/L Chloride Level 105.0 mmol/L Carbon Dioxide Level 32.3 mmol/L Anion Gap 9.4 Blood Urea Nitrogen 30 mg/dL Creatinine 1.04 mg/dL Estimated GFR () 86.7 Est GFR (CKD-EPI)(Non-Afr Italian) 71.7 BUN/Creatinine Ratio 28.0 Glucose Level 99 mg/dL Calcium Level 8.4 mg/dL Total Bilirubin 0.6 mg/dL Aspartate Amino Transf (AST/SGOT) 34 U/L Alanine Aminotransferase (ALT/SGPT) 164 U/L Alkaline Phosphatase 76 U/L Total Protein 5.8 g/dL Albumin 2.5 g/dL Globulin 3.3 Albumin/Globulin Ratio 0.757 Current Medications Medications (Trade) Dose Ordered Sig/Rocael PRN Reason Start Time Stop Time Status Last Admin Alprazolam (Xanax) 0.5 mg HS PRN ANXIETY 07/14/21 19:00 08/13/21 18:59 07/14/21 21:29 LEVEL 1 SEPSIS INFECTION CRITE: ABX Therapy LEVEL 2-SIRS (LIST ALL THAT AP: None/Not assessed Cardiovascular Evidence: Not Assessed or None Hematologic Evidence: None/Not assessed Hepatic Evidence: None/Not assessed Metabolic Evidence: None/Not assessed Neurological Evidence: None/Not assessed Respiratory Evidence: Need for O2 to keep>90% Renal Evidence: None/Not assessed O2 Sat by Pulse Oximetry: 94 Oxygen Flow Rate: 3.00 ABBEY DE PAZ MD Jul 15, 2021 12:18
[2021-07-15 12:50] VITALS: BP 96/62
--- NOTE | 2021-07-15 12:50 | NUR ---
HOME O2: NURSING STAFF HAD PT SIGN CHOICE LETTER AND IT WAS PLACED IN PT'S CHART. REFERRAL SENT OVER TO [facility] PER PT'S REQUEST. BRIAN STATED "I WILL HAVE SOME ONE UP THERE SHORTLY TO BRING PT A PORTABLE AND CONCENTRATOR. THEY WILL ALSO GIVE THE OFFICES DOWN THEIR PHONE NUMBER SO HE CALL IF HE HAS ANY QUESTIONS OR NEEDS ANYTHING ONCE HE GETS HOME". PAYAM ARANDA NOTIFIED OF ABOVE. PENDING HOME O2 AT THIS TIME. GOAL IS FOR PT TO RETURN HOME WITH FAMILY AND O2 IN PLACE. NO FURTHER CM/SS NEEDS NOTED OR IDENTIFIED AT THIS TIME.
== END 2021-07-15 13:00 | disposition home or self-care (01) | DRG 177 ==
LOC: MS 01:11
PROVIDERS: ADMIT Internal Medicine; ATTEND Family Medicine
PROC: XW043E5 Introduction of Remdesivir Anti-infective into Central Vein, Percutaneous Approach, New Technology Group 5 (ICD-10-PCS; principal; 2021-07-09)
DX: U07.1 COVID-19 (principal); J12.82 Pneumonia due to coronavirus disease 2019; J96.01 Acute respiratory failure with hypoxia; I50.9 Heart failure, unspecified; Z87.891 Personal history of nicotine dependence
CPT/HCPCS: 36415; 71045; 80053; 82550; 82553; 83880; 84478; 84484; 85025; 85027; 85379; 85610; 92610; 93005; 93306; 93312; 94640; G0378; J0456; J0696; J1100; J1650; J1940; J3490; J7040; J7050; C8925